=== PATIENT | female | born 1975 | race Caucasian/White ===

== ENCOUNTER 2017-04-04 17:44 | Emergency (ER) | payer SELFPAY ==
[~2017-04-04] VITALS: Ht 162.6 cm; Wt 85.5 kg
[~2017-04-04 17:44] MED LIST: IBUP400T22 PO; IRON; PREN1TAB49
[2017-04-04 17:53] VITALS: Ht 162.6 cm; Wt 85.5 kg
[2017-04-05] MEDS ORDERED: ACET500C5 PO (20:21)
== END 2017-04-04 20:10 | disposition left against medical advice (07) ==
LOC: FTE 17:44
DX: Z53.21 Procedure and treatment not carried out due to patient leaving prior to being seen by health care provider (principal)

== ENCOUNTER 2017-04-05 15:31 | Emergency (ER) | payer MEDICAID ==
[~2017-04-05] VITALS: Ht 157.5 cm; Wt 86.0 kg
[2017-04-05 15:49] VITALS: Ht 157.5 cm; Wt 86.0 kg
[2017-04-05 18:23] LABS: BASOPHILS % 0.3 % (0.0-2.0); EOSINOPHILS # 0.1 10^3/ul (0.0-0.5); EOSINOPHILS % 1.6 % (0.0-7.0); HEMATOCRIT 36.6 % (37.0-47.0); HEMOGLOBIN 11.7 g/dl (12.0-16.0); LYMPHOCYTES # 1.7 10^3/ul (0.8-2.9); LYMPHOCYTES % 26.7 % (15.0-51.0); MEAN CORPUSCULAR HEMOGLOBIN 26.8 pg (29.0-33.0); MEAN CORPUSCULAR VOLUME 83.9 fl (82.0-101.0); MONOCYTE # 0.4 10^3/ul (0.3-0.9); MONOCYTES % 5.9 % (0.0-11.0); NEUTROPHILS % 65.2 % (39.0-77.0); PLATELET COUNT 208 10^3/UL (140-415); RED BLOOD COUNT 4.36 10^6/ul (4.20-5.40); RED CELL DISTRIBUTION WIDTH 15.5 % (11.5-14.5); WHITE BLOOD COUNT 6.4 10^3/ul (4.8-10.8)
[2017-04-05 18:27] LABS: ADD UMIC NO; UR ASCORBIC ACID 40 mg/dL (NEGATIVE); UR BILIRUBIN (Dip) NEGATIVE (NEGATIVE); UR BLOOD (Dip) NEGATIVE (NEGATIVE); UR CLARITY CLEAR (CLEAR); UR COLOR YELLOW (YELLOW); UR GLUCOSE (Dip) NEGATIVE (NEGATIVE); UR KETONES (Dip) NEGATIVE (NEGATIVE); UR LEUKOCYTE ESTERASE (Dip) NEGATIVE Leu/ul (NEGATIVE); UR NITRITE (Dip) NEGATIVE (NEGATIVE); UR SPECIFIC GRAVITY (Dip) 1.033 (1.003-1.030); UR TOTAL PROTEIN (Dip) NEGATIVE (NEGATIVE); UR UROBILINOGEN (Dip) 2+ mg/dL (NEGATIVE)
[2017-04-05 18:48] LABS: ALBUMIN 4.2 g/dl (3.3-4.9); ALBUMIN/GLOBULIN RATIO 1.27; BILIRUBIN,INDIRECT 0.4 mg/dl (0-1.1); BILIRUBIN,TOTAL 0.4 mg/dl (0.2-1.3); CALCIUM 8.9 mg/dl (8.4-10.2); CREATININE 0.72 mg/dl (0.44-1.00); POTASSIUM 3.8 mmol/L (3.5-5.1); TOTAL PROTEIN 7.5 g/dl (6.1-8.1)
--- NOTE | 2017-04-05 19:36 | RADRPT ---
PROCEDURE: Ultrasound pelvis CLINICAL INDICATION: lower pelvic pain, bloating TECHNIQUE: Multiple rucker scale and color Doppler images of the pelvis were obtained transabdominal ly and transvaginally. Images were reviewed PACS workstation COMPARISON: None FINDINGS: The uterus is identified, measuring 9.8 x 5.0 x 6.8 cm. There is a 9 mm uterine fibroid in the anter ior fundus. The endometrial canal appears within normal limits, measuring 11 mm in thickness. There is small fluid in the endometrial canal. The right ovary measures 2.3 x 1.6 x 2.0 cm. The left ovary measures 3.0 x 3.0 x 2.7 cm. There is a left mildly irregular thick-walled cyst, 14 mm, which may reflect a corpus luteal or hemorrhagic c yst. Internal vascularity is not identified. There is an 11 mm follicle on the right. The ovaries ar e otherwise unremarkable in echotexture. There is bilateral vascular flow identified. There is minimal pelvic free fluid. There is no abnormal adnexal mass. IMPRESSION: 1. 9 mm anterior uterine fibroid. 2. Left ovarian 14 mm mildly irregular thick-walled cyst, which may reflect a corpus luteal cyst or hemorrhagic cyst. 6-week follow-up is suggested to exclude other process. 3. Trace pelvic free fluid. RPTAT: HBST. .Daniel Maxwell MD, Date Time Electronically viewed and signed by .Daniel Maxwell MD, on 04/05/2017 19:35 .T/
[2017-04-05] MEDS ORDERED: ACET500C5 PO (20:21)
--- NOTE | 2017-04-05 20:28 | ERD ---
ER Documentation Chief Complaint Date/Time DATE: 04/05/17 TIME: 20:23 Chief Complaint Complains of pelvic pain x 3 weeks HPI 41-year-old male with a past medical history of fibroids presents the ED complaining of breast tenderness, lower abdominal pain, urinary frequency as well as feeling short of breath that started intermittently for 1 week. States that she has been anxious because she feels like she may be . States that her last menses was on March 15, 2017. Denies any chest pain, nausea, vomiting, diarrhea, constipation, melena, emesis. Denies any dysuria, vaginal bleeding, vaginal discharge. ROS All systems reviewed and are negative except as per history of present illness. Medications Home Meds Active Scripts Acetaminophen* (Tylophen*) 500 Mg Capsule, 1 CAP PO Q6H Y for PAIN AND OR ELEVATED TEMP, #20 CAP Prov:RUSSELL SIFUENTES PA-C 04/05/17 Ibuprofen* (Motrin*) 400 Mg Tab, 400 MG PO Q6, #30 TAB Prov:RAFY PATEL NP 04/21/16 Reported Medications [Iron] No Conflict Check 12/09/09 Vits W-Ca,Fe,Fa(<1MG) () 1 Tab Tablet 12/09/09 Allergies Allergies: Coded Allergies: No Known Allergy (Verified Allergy, Mild, 12/09/09) PMhx/Soc Medical and Surgical Hx: pt denies Medical Hx, pt denies Surgical Hx Hx Alcohol Use: No Hx Substance Use: No Hx Tobacco Use: No Smoking Status: Never smoker Physical Exam Vitals Vital Signs Date Time Temp Pulse Resp B/P Pulse Ox O2 Delivery O2 Flow Rate FiO2 04/05/17 15:49 98.4 74 20 107/59 97 Physical Exam Const: Miy-[id number], well-nourished. In no acute distress. Head: Atraumatic, normocephalic Eyes: Normal Conjunctiva without injection. No purulent discharge. ENT: Normal external ear, nose. Moist oropharynx without tonsillar exudates. Non -erythematous pharynx. Uvula midline. No drooling. No trismus. Neck: No cervical midline tenderness. Full range of motion. No meningismus. No cervical lymphadenopathy. No JVD. Resp: Clear to auscultation bilaterally. No wheezing, rhonchi, rales, or crackles. No accessory muscle use. No retractions. Cardio: Regular rate and rhythm. No murmurs, rubs or gallops. Abd: Soft, lower pelvic tenderness, non distended. Normal bowel sounds. No palpable masses. No rebound tenderness. No guarding. Negative McBurney's point. Negative psoas sign. Negative obturator sign. Skin: No petechiae or rashes Back: No midline tenderness. No CVA tenderness. Ext: No cyanosis, or edema. Neur: Awake and alert. Normal gait. Normal coordination. Psych: Normal Mood and Affect Results 24 hrs Laboratory Tests Test 04/05/17 18:00 04/05/17 18:09 White Blood Count 6.410^3/ul Red Blood Count 4.3610^6/ul Hemoglobin 11.7g/dl Hematocrit 36.6% Mean Corpuscular Volume 83.9fl Mean Corpuscular Hemoglobin 26.8pg Mean Corpuscular Hemoglobin Concent 32.0g/dl Red Cell Distribution Width 15.5% Platelet Count 76514^3/UL Mean Platelet Volume 11.0fl Neutrophils % 65.2% Lymphocytes % 26.7% Monocytes % 5.9% Eosinophils % 1.6% Basophils % 0.3% Nucleated Red Blood Cells % 0.0/100WBC Neutrophils # (Manual) 4.210^3/ul Lymphocytes # 1.710^3/ul Monocytes # 0.410^3/ul Eosinophils # 0.110^3/ul Basophils # 0.010^3/ul Nucleated Red Blood Cells # 0.010^3/ul Sodium Level 137mmol/L Potassium Level 3.8mmol/L Chloride Level 104mmol/L Carbon Dioxide Level 27mmol/L Anion Gap 10 Blood Urea Nitrogen 18mg/dl Creatinine 0.72mg/dl Glucose Level 94mg/dl Calcium Level 8.9mg/dl Total Bilirubin 0.4mg/dl Direct Bilirubin 0.00mg/dl Indirect Bilirubin 0.4mg/dl Aspartate Amino Transf (AST/SGOT) 33IU/L Alanine Aminotransferase (ALT/SGPT) 55IU/L Alkaline Phosphatase 73IU/L Total Protein 7.5g/dl Albumin 4.2g/dl Globulin 3.30g/dl Albumin/Globulin Ratio 1.27 Lipase 58U/L Serum HCG, Qualitative NEGATIVE Urine Color YELLOW Urine Clarity CLEAR Urine pH 5.0 Urine Specific Roy 1.033 Urine Ketones NEGATIVEmg/dL Urine Nitrite NEGATIVEmg/dL Urine Bilirubin NEGATIVEmg/dL Urine Urobilinogen 2+mg/dL Urine Leukocyte Esterase NEGATIVELeu/ul Urine Hemoglobin NEGATIVEmg/dL Urine Glucose NEGATIVEmg/dL Urine Total Protein NEGATIVEmg/dl Procedures/MDM 41-year-old female patient with no significant past medical history presents the ED complaining of lower pelvic pain that started intermittently for 3 weeks. Patient is afebrile nontoxic appearing. Patient has normal vital signs. Patient was further worked up with CBC, CMP, lipase, UA, urine , pelvic ultrasound. CBC: No leukocytosis. No e/o of systemic infection. No e/o anemia. CMP: No e/o severe acidosis, alkalosis, renal failure, diabetic ketoacidosis, liver disease Lipase within normal limits. Urine: No leukocyte esterase, no nitrites, no hematuria. Urine : negative Negative serum Hcg PROCEDURE: Ultrasound pelvis CLINICAL INDICATION: lower pelvic pain, bloating TECHNIQUE: Multiple rucker scale and color Doppler images of the pelvis were obtained transabdominally and transvaginally. Images were reviewed PACS workstation COMPARISON: None FINDINGS: The uterus is identified, measuring 9.8 x 5.0 x 6.8 cm. There is a 9 mm uterine fibroid in the anterior fundus. The endometrial canal appears within normal limits, measuring 11 mm in thickness. There is small fluid in the endometrial canal. The right ovary measures 2.3 x 1.6 x 2.0 cm. The left ovary measures 3.0 x 3.0 x 2.7 cm. There is a left mildly irregular thick-walled cyst, 14 mm, which may reflect a corpus luteal or hemorrhagic cyst. Internal vascularity is not identified. There is an 11 mm follicle on the right. The ovaries are otherwise unremarkable in echotexture. There is bilateral vascular flow identified. There is minimal pelvic free fluid. There is no abnormal adnexal mass. IMPRESSION: 1. 9 mm anterior uterine fibroid. 2. Left ovarian 14 mm mildly irregular thick-walled cyst, which may reflect a corpus luteal cyst or hemorrhagic cyst. 6-week follow-up is suggested to exclude other process. 3. Trace pelvic free fluid. Patient's lower pelvic pain could likely be secondary to the 9 mm fibroid and a 14 mm left ovarian cyst. Low suspicion for gastritis, GERD, peptic ulcer disease, cholecystitis, choledocholithiasis, cholangitis, pancreatitis, appendicitis, bowel obstruction, ileus, volvulus, nephrolithiasis, pyelonephritis, hepatitis, perforated viscus, diverticulitis, abdominal hernia, acute abdomen, mesenteric ischemia or other emergent conditions. Discharge medications: Tylenol Follow up with primary care physician in 1-2 days for referral to an REHAB DIRECTOR OCCUPATIONAL THERAPIST. Instructed patient to return to the ED sooner for any worsening symptoms. Patient's questions were answered. Patient understood and agreed with discharge plan. Patient discharged stable. Departure Diagnosis: Primary Impression: Fibroid Uterine leiomyoma location: unspecified location Qualified Code: D25.9 - Uterine leiomyoma, unspecified location Additional Impression: Ovarian cyst Laterality: left Qualified Code: N83.202 - Cyst of left ovary Condition: Stable Patient Instructions: What Are Fibroids?, Ovarian Cyst Referrals: [facility] YOU HAVE RECEIVED A MEDICAL SCREENING EXAM AND THE RESULTS INDICATE THAT YOU DO NOT HAVE A CONDITION THAT REQUIRES URGENT TREATMENT IN THE EMERGENCY DEPARTMENT. FURTHER EVALUATION AND TREATMENT OF YOUR CONDITION CAN WAIT UNTIL YOU ARE SEEN IN YOUR DOCTORS OFFICE WITHIN THE NEXT 1-2 DAYS. IT IS YOUR RESPONSIBILITY TO MAKE AN APPOINTMENT FOR FOLOW-UP CARE. IF YOU HAVE A PRIMARY DOCTOR --you should call your primary doctor and schedule an appointment IF YOU DO NOT HAVE A PRIMARY DOCTOR YOU CAN CALL OUR PHYSICIAN REFERRAL HOTLINE AT IF YOU CAN NOT AFFORD TO SEE A PHYSICIAN YOU CAN CHOSE FROM THE FOLLOWING [facility] CLINICS [facility] [address] [facility]. [facility] [address] [facility] [facility] [address] [facility] [facility] [address] [facility] [address] [facility]. [facility]. [address] [facility] YOU HAVE RECEIVED A MEDICAL SCREENING EXAM AND THE RESULTS INDICATE THAT YOU DO NOT HAVE A CONDITION THAT REQUIRES URGENT TREATMENT IN THE EMERGENCY DEPARTMENT. FURTHER EVALUATION AND TREATMENT OF YOUR CONDITION CAN WAIT UNTIL YOU ARE SEEN IN YOUR DOCTORS OFFICE WITHIN THE NEXT 1-2 DAYS. IT IS YOUR RESPONSIBILITY TO MAKE AN APPOINTMENT FOR FOLOW-UP CARE. IF YOU HAVE A PRIMARY DOCTOR --you should call your primary doctor and schedule and appointment IF YOU DO NOT HAVE A PRIMARY DOCTOR YOU CAN CALL OUR PHYSICIAN REFERRAL HOTLINE AT . IF YOU CAN NOT AFFORD TO SEE A PHYSICIAN YOU CAN CHOSE FROM THE FOLLOWING [facility] INSTITUTIONS: [facility] [address] [place] [address] [facility] [address] [place] [address] [facility] [address] [place] [address] REHAB DIRECTOR OCCUPATIONAL THERAPIST [place] [address] [facility] [address] [place], [place] [id number] OFFICE FAX , [facility] [address] [place] [address] [address] [address] [place] [address] [address] [facility] [address] [id number] [id number] [facility] [address] [place] [address] [facility] [address] [place] [address] [phone] [facility] [id number] - [place] [address], [facility] [address] [address] [address] [facility]. [address], [facility] [address] [address] [address] [place], [place] [id number] [facility] Hours: 8:00 am - 5:00 pm Additional Instructions: Llame al doctor MAANA y michael leandro JUSTIN PARA DENTRO DE 2-3 TAMAYO para un referido rowena a un obstetra/Gineclogo y repetir el ultrasonido plvico. Dgale a la secretaria que nosotros le instruimos hacer esta justin.Avise o llame si curry condicin se empeora antes de la justin. Regresa aqui si peor o no mejor. RUSSELL SIFUENTES PA-C Apr 05, 2017 20:28 condicin se empeora antes de la justin. Regresa aqui si peor o no mejor. RUSSELL SIFUENTES PA-C Apr 05, 2017 20:28
== END 2017-04-05 20:27 | disposition home or self-care (01) ==
LOC: FTE 15:31
DX: D25.9 Leiomyoma of uterus, unspecified (principal); N83.202 Unspecified ovarian cyst, left side
CPT/HCPCS: 36415; 76830; 76856; 80053; 81003; 83690; 84703; 85025; Z7502